=== PATIENT | female | born 1995 | race Two or more races ===

== ENCOUNTER 2017-08-22 16:21 | Emergency (ER) | payer OTHER ==
[~2017-08-22] VITALS: Ht 154.9 cm; Wt 81.6 kg
[~2017-08-22 16:21] MED LIST: LEVO750T21 PO; METR500T PO
[2017-08-22 16:32] VITALS: BP 115/73
== END 2017-08-22 17:12 | disposition home or self-care (01) ==
LOC: ER 16:26
DX: J11.1 Influenza due to unidentified influenza virus with other respiratory manifestations (principal); Z88.0 Allergy status to penicillin
CPT/HCPCS: A4606; Z7610

== ENCOUNTER 2017-11-29 23:01 | Emergency (ER) | payer SELFPAY ==
[2017-11-29] MEDS ORDERED: IBUPROFEN 600 MG TABLET PO ONE ×2 (23:28→23:30)
== END 2017-11-30 00:29 | disposition home or self-care (01) ==
DX: S62.637A Displaced fracture of distal phalanx of left little finger, initial encounter for closed fracture (principal); Z88.0 Allergy status to penicillin; W23.1XXA Caught, crushed, jammed, or pinched between stationary objects, initial encounter; Y93.89 Activity, other specified; Y92.89 Other specified places as the place of occurrence of the external cause; Y99.8 Other external cause status

== ENCOUNTER 2018-09-17 05:24 | Emergency (ER) | payer MEDICAID, OTHER ==
[~2018-09-17] VITALS: Ht 152.4 cm; Wt 59.0 kg
--- NOTE | 2018-09-17 06:29 | NUR ---
CALLED FOR PT IN WAITING ROOM. NO RESPONSE.
--- NOTE | 2018-09-17 06:44 | NUR ---
CALLED FOR PT IN WAITING ROOM. NO RESPONSE.
--- NOTE | 2018-09-17 07:53 | NUR ---
URINE COLLECTED AND SENT TO LAB.
--- NOTE | 2018-09-17 07:57 | NUR ---
patient presented to the ER c/o RLQ radiating to LLQ abd pain, 8/10 ps, on room air, ambulatory, breathing evenly and unlabored. kept comfortable. will continue to monitor accordingly.
[2018-09-17 08:10] LABS: APPEARANCE,URINE SL CLOUDY (CLEAR); BILIRUBIN,URINE NEGATIVE (NEGATIVE); BLOOD, URINE NEGATIVE Ery/uL (NEGATIVE); COLOR,URINE YELLOW (YELLOW); KETONES,URINE NEGATIVE (NEGATIVE); LEUKOCYTE ESTERASE ,URINE 3+ (NEGATIVE); NITRITE, URINE NEGATIVE (NEGATIVE); PH,URINE 7.5 (5.0-8.0); PROTEIN,URINE NEGATIVE (NEGATIVE); UGLUCOSE NEGATIVE (NEGATIVE); UROBILINOGEN,URINE 0.2 EU/dL (0.2)
--- NOTE | 2018-09-17 08:20 | NUR ---
mechanical sound technician at bedside for exam.
[2018-09-17 08:26] LABS: RBC,URINE 0-2 /HPF (0-2)
[2018-09-17 08:27] LABS: BACTERIA,URINE Many /HPF (None Seen); SQUAMOUS EPITHELIAL CELL,UR Many /HPF (None Seen); WBC,URINE 81-100 /HPF (0-3)
[2018-09-17 08:57] VITALS: BP 134/65
--- NOTE | 2018-09-17 08:58 | NUR ---
Patient discharged to home in stable condition. Written and verbal after care instructions given. Patient verbalizes understanding of instruction.
== END 2018-09-17 08:57 | disposition home or self-care (01) ==
LOC: ER 05:27
DX: N83.202 Unspecified ovarian cyst, left side (principal); Z98.890 Other specified postprocedural states; Z88.0 Allergy status to penicillin
CPT/HCPCS: 76856; 81001; 84703; 87086; 99284; A4606; 81000-TC; 87186-TC

== ENCOUNTER 2020-02-23 17:03 | Emergency (ER) | payer OTHER ==
[~2020-02-23] VITALS: Ht 165.1 cm; Wt 59.0 kg
[2020-02-23 17:21] VITALS: BP 129/71
[2020-02-23] MEDS ORDERED: IBUPROFEN 600 MG TABLET PO ONE ×2 (17:30→17:50)
--- NOTE | 2020-02-23 18:56 | NUR ---
CALLED [facility][id number] INCIDENT HAPPENED AT: [facility] [address] AT 0300 BY HER EX. OFFICERS WILL BE DISPATCHED.
--- NOTE | 2020-02-23 19:11 | NUR ---
PT. VERBALIZED UNDERSTANDING OF AFTERCARE INSTRUCTIONS.Patient discharged to home in stable condition. Written and verbal after care instructions given. Patient verbalizes understanding of instruction.
== END 2020-02-23 19:12 | disposition home or self-care (01) ==
LOC: ER 17:10
DX: H66.91 Otitis media, unspecified, right ear (principal); J06.9 Acute upper respiratory infection, unspecified; R07.81 Pleurodynia; Z98.890 Other specified postprocedural states; Z88.0 Allergy status to penicillin; Z79.899 Other long term (current) drug therapy; Y08.89XA Assault by other specified means, initial encounter; Y93.89 Activity, other specified; Y92.89 Other specified places as the place of occurrence of the external cause; Y99.8 Other external cause status
CPT/HCPCS: 71100-TC; 86403-TC; 87070-TC

== ENCOUNTER 2021-03-09 11:07 | Emergency (ER) | payer OTHER ==
[~2021-03-09] VITALS: Ht 152.4 cm; Wt 79.4 kg
--- NOTE | 2021-03-09 11:26 | NUR ---
TO ER BED 4, C/O R SIDED FLANK PAIN THIS MORNING, AWAITING MD GOMEZ
--- NOTE | 2021-03-09 11:28 | NUR ---
URINE COLLECTED AND SENT TO LAB
--- NOTE | 2021-03-09 11:44 | NUR ---
LAB AT BEDSIDE
[2021-03-09] MEDS ORDERED: IBUPROFEN 400 MG TABLET ONE (11:47)
[2021-03-09] MEDS ORDERED: IBUPROFEN 400 MG TABLET PO ONE (12:00)
[2021-03-09 12:06] LABS: BASOPHILS # (AUTO) 0.1 K/uL (0.0-0.2); BASOPHILS % (AUTO) 1.2 % (0.0-2.0); EOSINOPHILS % (AUTO) 2.1 % (0.0-6.0); HEMATOCRIT 43 % (33-45); HEMOGLOBIN 14.4 g/dL (11.5-14.8); LYMPHOCYTES # (AUTO) 2.2 K/uL (0.8-4.8); MEAN CORPUSCULAR HGB CONC 34 g/dl (31.0-36.0); MEAN CORPUSCULAR VOLUME 86 fL (82-100); MONOCYTES # (AUTO) 0.5 K/uL (0.1-1.30); NEUTROPHILS # (AUTO) 7.2 K/uL (1.8-8.9); NEUTROPHILS % (AUTO) 70.7 % (43.0-81.0); PLATELET COUNT (AUTO) 261 K/uL (150-450); RED BLOOD CELL COUNT(AUTO) 4.99 MIL/uL (4.0-5.2); WHITE BLOOD COUNT (AUTO) 10.2 K/uL (4.3-11.0)
[2021-03-09 12:18] LABS: CALCIUM, SERUM 8.4 mg/dL (8.5-10.1); CREATININE 1.1 mg/dL (0.6-1.3); POTASSIUM 3.9 mmol/L (3.5-5.1)
[2021-03-09 12:24] LABS: ALBUMIN 3.8 g/dL (3.4-5.0); BILIRUBIN,DIRECT 0.1 mg/dL (0.0-0.2); BILIRUBIN,TOTAL 0.3 mg/dL (0.2-1.0); TOTAL PROTEIN, SERUM 7.9 g/dL (6.4-8.2)
[2021-03-09 12:35] LABS: BILIRUBIN,URINE SMALL (NEGATIVE); COLOR,URINE YELLOW (YELLOW); LEUKOCYTE ESTERASE ,URINE NEGATIVE (NEGATIVE); NITRITE, URINE NEGATIVE (NEGATIVE); PROTEIN,URINE TRACE mg/dl (NEGATIVE); UGLUCOSE NEGATIVE (NEGATIVE); UROBILINOGEN,URINE 0.2 EU/dL (0.2)
[2021-03-09 12:48] LABS: BACTERIA,URINE Rare /HPF (None Seen); RBC,URINE 0-2 /HPF (0-2); SQUAMOUS EPITHELIAL CELL,UR Few /HPF (None Seen); URINE AMORPHOUS URATE Many /HPF (None Seen); WBC,URINE 0-2 /HPF (0-3)
[2021-03-09 13:30] VITALS: BP 112/62
== END 2021-03-09 13:44 | disposition home or self-care (01) ==
LOC: ER 11:07
DX: R10.31 Right lower quadrant pain (principal); R10.11 Right upper quadrant pain; Z98.890 Other specified postprocedural states; Z88.0 Allergy status to penicillin
CPT/HCPCS: 36415; 80048-TC; 80076-TC; 81001; 83690-TC; 84703-TC; 85025-TC